=== PATIENT | female | born 1965 | race Two or more races ===

== ENCOUNTER 2024-11-29 13:56 | Emergency (ER) | payer OTHER ==
[~2024-11-29] VITALS: Ht 162.6 cm; Wt 61.4 kg
--- NOTE | 2024-11-29 14:42 | ED.PDOC ---
Musculoskeletal HPI Comments 59 y/o F, presents to the ED for CC of upper extremity. Patient states, that she was outside walking when she accidently tripped, in an attempt to break her fall she landed on her right wrist. Following trauma, patient complains of right wrist pain. Upon arrival patient has good pulses to right distal upper extremity; deformity is noted. Patient denies head injury, LOC, abrasions, or open wounds. No other symptoms or modifying factors present at this time. Chief Complaint: Extremity Swelling Time Seen by MD: 14:35 Reviewed Notes: Nurses Notes, Medications, Allergies Allergies: Coded Allergies: NO KNOWN ALLERGIES (Unverified , 11/29/24) Home Meds Active Scripts Ibuprofen Micronized (MOTRIN TABLET) 600 Mg Tb, 600 MG PO TID PRN for 3 Days, #9 TAB *Black box warning-NSAIDS can increase risk of [place] & hypertension, GI irritation, ulceration, bleed, perferation. Do not use post cardiac surgery. Use short duration/lowest effective dose. Prov:PAM MERCADO MD 11/29/24 Hydrocodone-Acetaminophen (Hydrocodone Bitartrate/AC 5-325 mg) 1 Tab Tab, 1 TAB PO DAILY for 5 Days, #5 TAB Prov:PAM MERCADO MD 11/29/24 Information Source: Patient Mode of Arrival: Ambulatory Location: Right Extremity Location: Wrist Timing: Hours Prehospital treatment: None Severity: Moderate Able to Move Extremity: Yes Pain: Moderate Mechanism: Crush Circumstances: Fall Onset of Symptoms: After Trauma Symptoms: Pain DVT Risk Factors: NONE Last Tetanus: Unknown Associated signs and symptoms: Wrist pain Past Medical History PAST MEDICAL HISTORY: Denies Surgical History: Denies all surgeries MANAGER OF REGULATORY AFFAIRS History: Denies all MANAGER OF REGULATORY AFFAIRS Hx Family History Family History: Unknown Social History Smoker: Other (VAPE) Alcohol: Denies ETOH Use Drugs: Denies Drug Use Lives In: Home Constitutional: denies: chills, diaphoresis, fatigue, fever, malaise, sweats, weakness, others EENTM: denies: blurred vision, double vision, ear bleeding, ear discharge, ear drainage, ear pain, ear ringing, eye pain, eye redness, hearing loss, mouth pain, mouth swelling, nasal discharge, nose bleeding, nose congestion, nose pain, photophobia, tearing, throat pain, throat swelling, voice changes, others Respiratory: denies: cough, hemoptysis, orthopnea, SOB at rest, shortness of breath, SOB with excertion, stridor, wheezing, others Cardiovascular: denies: chest pain, dizzy spells, diaphoresis, Dyspnea on exertion, edema, irregular heart beat, left arm pain, lightheadedness, palpitations, PND, syncope, others Gastrointestinal: denies: abdomen distended, abdominal pain, blood streaked bowels, constipated, diarrhea, dysphagia, difficulty swallowing, hematemesis, melena, nausea, poor appetite, poor fluid intake, rectal bleeding, rectal pain, vomiting, others Genitourinary: denies: abnormal vagina bleeding, burning, dyspareunia, dysuria, flank pain, frequency, hematuria, incontinence, pain, , vagina discharge, urgency, others Neurological: denies: dizziness, fainting, headache, left sided numbness, left sided weakness, numbness, paresthesia, pre-existing deficit, right sided numbne ss, right sided weakness, seizure, speech problems, tingling, tremors, weakness, others Musculoskeletal: reports: others (right wrist pain); denies: back pain, gout, joint pain, joint swelling, muscle pain, muscle stiffness, neck pain Integumetry: denies: bruises, change in color, change in hair/nails, dryness, laceration, lesions, lumps, rash, wounds, others Allergic/Immunocompromised: denies: Difficulty Healing, Frequent Infections, Hives, Itching, others Hematologic/Lymphatic: denies: anemia, blood clots, easy bleeding, easy bruising, swollen glands, others Endocrine: denies: excessive hunger, excessive sweating, excessive thirst, excessive urination, flushing, intolerance to cold, intolerance to heat, unexplained weight gain, unexplained weight loss, others Psychiatric: denies: anxiety, bipolar disorder, depression, hopeless, panic disorder, schizophrenia, sleepless, suicidal, others All Other Systems: Reviewed and Negative Physical Exam General Appearance: Moderate Distress HEENT: Normal ENT Inspection, Pharynx Normal, TMs Normal Neck: Full Range of Motion, Non-Tender, Normal, Normal Inspection Respiratory: Chest Non-Tender, Lungs Clear, No Accessory Muscle Use, No Respiratory Distress, Normal Breath Sounds Cardiovascular: No Edema, No JVD, No Murmur, No Gallop, Normal Peripheral Pulses, Regular Rate/Rhythm Breast Exam: Deferred Gastrointestinal: No Organomegaly, Non Tender, No Pulsatile Mass, Normal Bowel Sounds, Soft Genitalia: Deferred Pelvic: Deferred Rectal: Deferred Extremities: Decreased range of motion (Right upper extremity) Musculoskeletal : Apperance: Normal Neurologic: Alert, lbd teacher II-XII nml as Tested, No Motor Deficits, Normal Affect, Normal Mood, No Sensory Deficits Cerebellar Function: Normal Reflexes: Normal Skin: Dry, Normal Color, Warm Peripheral Pulses: 3+ Radial (R), 3+ Radial (L) Lymphatic: No Adenopathy Was a procedure done? Was a procedure done?: No Differential Diagnosis EXT Differential Diagnosis: Fracture, Sprain, Dislocation X-Ray, Labs, Meds, VS Vital Signs Date Time Temp Pulse Resp B/P (MAP) Pulse Ox O2 Delivery O2 Flow Rate FiO2 11/29/24 14:15 98.4 78 17 124/73 (90) 95 98.4 [place] [address] Ph: [phone] DIAGNOSTIC IMAGING Diagnostic Imaging Report : [id number] Signed PATIENT: YUAN BLACKWELLCCT: [id number] UNIT: [id number] : 1965 LOC: ER ROOM / BED: / AGE / SEX: 59 / F ADM STATUS: REG ER SERVICE [id number] ORDERING PHYSICIAN: PAM MERCADO MD PROCEDURE(s): RWRI2 - R WRIST 2 VIEW XRAY REASON: fracture ORDER NUMBER(s): [id number], ACCESSION NUMBER(s): [id number] CLINICAL INDICATION: Pain; fracture TECHNIQUE: 2 radiographic views of the right wrist were obtained. Comparison: None FINDINGS/IMPRESSION: Displaced and intra-articular fracture of the distal radius. ATED BY: ASTRID GENAO MD DICTATED DATE/TIME: 11/29/241510 SIGNED BY: ASTRID GENAO MD SIGNED DATE/TIME: 11/29/241510 CC: Patient alert. Complaining of right wrist pain. Vitals stable. Answering questions. Has a deformity of the right wrist pain Colace fracture. Was given pain medication. Placed a splint. Good pulses. Was referred to orthopedic. Was given prescription of Effort. Explained to the patient. Was told to follow up with her primary care physician. Was told to come back if there is any problem. Time of 1ST Reevaluation: 15:05 Reevaluation 1ST: Unchanged Patient Education/Counseling: Diagnosis, Treatment Family Education/Counseling: No Family Present Departure 1 Departure Time of Disposition: 14:48 Impression: Primary Impression: Colles' fracture Qualified Codes: S52.531A - Colles' fracture of right radius, initial encounter for closed fracture Disposition: 01 HOME / SELF CARE / HOMELESS Condition: Good e-Prescriptions Ibuprofen Micronized (MOTRIN TABLET) 600 Mg Tb 600 MG PO TID PRN for 3 Days, #9 TAB *Black box warning-NSAIDS can increase risk of [place] & hypertension, GI irritation, ulceration, bleed, perferation. Do not use post cardiac surgery. Use short duration/lowest effective dose. Prov: PAM MERCADO MD 11/29/24 Hydrocodone-Acetaminophen (Hydrocodone Bitartrate/AC 5-325 mg) 1 Tab Tab 1 TAB PO DAILY for 5 Days, #5 TAB Prov: PAM MERCADO MD 11/29/24 Discharged With: Self Critical Care Note Critical Care Time?: No Stability Stability form required: No Heart Score Heart Score: Heart Score Response (Comments) Value History N/A 0 EKG N/A 0 Age N/A 0 Risk Factors N/A 0 Troponin N/A 0 Total 0 I personally scribed for PAM MERCADO MD ([email or web address]) on 11/29/24 at 14:42. Electronically submitted by Umm Marques ([email or web address]). I personally scribed for PAM MERCADO MD ([email or web address]) on 11/29/24 at 15:26. Electronically submitted by Umm Marques ([email or web address]). PAM MERCADO MD Nov 29, 2024 14:42
[2024-11-29] MEDS: HYDROcodone-ACET 10/325MG TAB PO ONE ×2 (14:45→17:35)
[2024-11-29] MEDS ORDERED: HYDR-4902 PO (14:51)
[2024-11-29] MEDS ORDERED: IBU600T PO (14:51)
--- NOTE | 2024-11-29 15:13 | DVH ---
CLINICAL INDICATION: Pain; fracture TECHNIQUE: 2 radiographic views of the right wrist were obtained. Comparison: None FINDINGS/IMPRESSION: Displaced and intra-articular fracture of the distal radius.
[2024-11-29 17:30] VITALS: BP 124/73; PULSE 78; RESP 18; TEMP 98.6; O2SAT 98
== END 2024-11-29 17:40 | disposition home or self-care (01) ==
LOC: ER 13:56
DX: S52.531A Colles' fracture of right radius, initial encounter for closed fracture (principal); F17.290 Nicotine dependence, other tobacco product, uncomplicated; Z79.899 Other long term (current) drug therapy; W01.0XXA Fall on same level from slipping, tripping and stumbling without subsequent striking against object, initial encounter; Y93.01 Activity, walking, marching and hiking; Y92.89 Other specified places as the place of occurrence of the external cause; Y99.8 Other external cause status
CPT/HCPCS: 29125; 73100